=== PATIENT | male | born 1940 | race Caucasian/White ===

== ENCOUNTER 2018-06-02 21:35 | Emergency (ER) | payer OTHER ==
--- NOTE | 2018-06-02 22:03 | ED Physician Chart ---
ED Chief Complaint/HPI - Patient Information Date Seen:: 06/02/18 Time Seen:: 21:58 Chief Complaint:: rt groin bleeding History of Present Illness:: 78 yr old male who had angio rt leg with bleeding at the site from home when more pressure applied ED Review of Systems - Review of Systems General/Constitutional: No fever Skin: Other (rt groin angio site with pannus putting pressure on the puncture wound and bleeding under control) Head: No headache Eyes: No loss of vision ENT: No earache Neck: No neck pain Cardio Vascular: No chest pain Pulmonary: No SOB GI: No vomiting G/U: No dysuria Musculoskeletal: Bone or joint pain, No bone or joint pain (has rt bka) Endocrine: No polyuria Hematopoietic: Bruising Allergic/Immuno: No urticaria Neurological: No syncope ED Past Medical History - Past Medical History Past Medical History: DM, CAD ED Physical Exam - Physical Examination General/Constitutional: Well-developed, well-nourished Head: Atraumatic Eyes: Lids, conjuctiva normal (rt groin hematoma at puncture site) ENMT: External ears, nose nl Neck: Nontender Respiratory: Nl effort/Exclusion Cardio Vascular: RRR GI: No tenderness/rebounding/guarding Other Extremities comments:: rt bka Neuro/Psych: Alert/oriented ED Assessment - Assessment General Assessment: rt groin hematoma after angiogram ED Septic Shock - . Is Septic Shock (SBP<90, OR Lactate>4 mmol\L) present?: No ED Reassessment (Disposition) - Reassessment Reassessment:: rt groin angiogram with bleeding at the site - Diagnosis Diagnosis:: as above - Patient Disposition Discharge/Transfer:: Home Condition at Disposition:: Stable
== END 2018-06-02 23:31 | disposition home or self-care (01) ==
LOC: ER 21:35
DX: I97.618 Postprocedural hemorrhage of a circulatory system organ or structure following other circulatory system procedure (principal); I25.10 Atherosclerotic heart disease of native coronary artery without angina pectoris; E11.9 Type 2 diabetes mellitus without complications
CPT/HCPCS: Z7502